=== PATIENT | male | born 1970 | race Caucasian/White ===

== ENCOUNTER 2016-08-07 08:22 | Day surgery (SDC) | payer OTHER ==
[~2016-08-07 08:22] MED LIST: TRIAMCINOLONE ACETONIDE INJ 40 MG/1 ML VIAL INJ PRN
[2016-08-07] MEDS ORDERED: SODIUM BICARBONATE 8.4% INJ 50 MEQ/50 ML DISP.SYRIN ONE (09:33)
[2016-08-07] MEDS ORDERED: FENTANYL CITRATE INJ/PF 100 MCG/2 ML AMPUL ONE (09:35)
[2016-08-07] MEDS ORDERED: MIDAZOLAM HCL INJ 5 MG/1 ML VIAL ONE (09:35)
--- NOTE | 2016-08-07 10:22 | OPERATIVE REPORT E ---
Operative Report NAME: LINETTE VALERO : 1970 AGE: 45Y DATE OF SURGERY: 08/07/2016 ROOM: PREOPERATIVE DIAGNOSIS: Lumbar radiculopathy. POSTOPERATIVE DIAGNOSIS: Lumbar radiculopathy. OPERATION: Translaminar lumbar epidural steroid injection at L5-S1 with a left paramedian approach. SURGEON: KYLAH CHRISTIANSON M.D. ANESTHESIA: MAC using 4 mg of Versed and 100 mcg of Fentanyl. COMPLICATIONS: None. PROCEDURE IN DETAIL: After obtaining informed consent and advising the patient of the risks and benefits, including serious neurological injury, bleeding and infection, allergic reaction and , he was taken to the procedure room. He was then placed comfortably in a prone position. Confirmation was assessed visually and verbally. He was then prepped with chlorhexidine with a suitable drying time prior to draping. Site was marked at the L5-S1 intersection and the patient was sterilely draped. The skin was anesthetized with 1% lidocaine with bicarb. Using an 18-gauge Tuohy needle it was easily advanced through the anesthetized area using intermittent AP and lateral fluoroscopy to confirm depth. Using [id number] technique at 8.5 cm the epidural space was found. No contrast was injected given prior allergy. Images were saved. Needle was removed after injection of 5 mL of a mixture of 3 mL normal saline and 80 mg of Kenalog after a negative aspiration for heme or CSF. The needle was then removed and the area was cleansed and a dressing was placed. The patient was taken to the PACU for further postoperative care and monitoring. He will follow up in the office as scheduled. DICTATING PHYSICIAN: KYLAH CHRISTIANSON M.D. [id number] Y#: [id number] ID: [id number] JOB#: [id number] ACCT: [id number] cc:KYLAH CHRISTIANSON M.D. >
[2016-08-07 13:39] VITALS: BP 132/86
== END 2016-08-07 11:45 | disposition home or self-care (01) ==
LOC: CCL 08:22
PROVIDERS: ATTEND Student in an Organized Health Care Education/Training Program
PROC: 3E0U33Z Introduction of Anti-inflammatory into Joints, Percutaneous Approach (ICD-10-PCS; principal; 2016-08-07)
DX: M54.17 Radiculopathy, lumbosacral region (principal); I10 Essential (primary) hypertension; M51.36 Other intervertebral disc degeneration, lumbar region; G89.4 Chronic pain syndrome; M47.814 Spondylosis without myelopathy or radiculopathy, thoracic region; Z79.899 Other long term (current) drug therapy; S06.33 Contusion and laceration of cerebrum, unspecified; Z79.891 Long term (current) use of opiate analgesic
CPT/HCPCS: 62322; 77001; J3010; J3490 ×3

== ENCOUNTER 2016-08-29 06:22 | Day surgery (SDC) | payer OTHER ==
[2016-08-29] MEDS ORDERED: OXYCODONE-ACETAMINOPHEN 5-325 MG TABLET ONE (07:07)
[2016-08-29] MEDS ORDERED: SODIUM BICARBONATE 8.4% INJ 50 MEQ/50 ML DISP.SYRIN ONE (07:24)
[2016-08-29] MEDS ORDERED: MIDAZOLAM HCL INJ 5 MG/1 ML VIAL ONE (08:02)
[2016-08-29] MEDS ORDERED: FENTANYL CITRATE INJ/PF 100 MCG/2 ML AMPUL ONE (08:03)
[2016-08-29] MEDS ORDERED: TRIAMCINOLONE ACETONIDE INJ 40 MG/1 ML VIAL INJ ONE (09:00)
--- NOTE | 2016-08-29 09:24 | OPERATIVE REPORT E ---
Operative Report NAME: LINETTE VALERO : 1970 AGE: 46Y DATE OF SURGERY: 08/29/2016 ROOM: PREOPERATIVE DIAGNOSIS: Thoracic radiculopathy. POSTOPERATIVE DIAGNOSIS: Thoracic radiculopathy. OPERATION: Thoracic epidural steroid injection, left paramedian translaminar at T7-8. SURGEON: KYLAH CHRISTIANSON M.D. ANESTHESIA: MAC using 5 mg of Versed and 100 mcg of fentanyl. COMPLICATIONS: None. PROCEDURE IN DETAIL: After obtaining informed consent, advising the patient of the risks and benefits, including serious neurologic injury, bleeding and infection, allergic reaction and , and ineffective pain relief, he was taken to the procedure room. He was placed comfortably in the prone position. Confirmation was assessed visually and verbally. He was then prepped with chlorhexidine with a suitable drying time prior to draping. Conscious sedation was then administered using 4 mg of Versed and 100 mcg of fentanyl. Using intermittent fluoroscopy, the T7-T8 interspace was marked. The patient was draped. Skin was anesthetized with 1% lidocaine with bicarb. A timeout was performed. Using a 17-gauge Tuohy needle, it was advanced through the anesthetized area using intermittent AP and lateral fluoroscopy to confirm using loss of resistance technique at the epidural space was found at 9 cm using a left paramedian approach. No contrast was injected given his allergy. Images were saved. Needle was removed after injection of 80 mg of Kenalog and 10 mL of normal saline. Note that there was a negative aspiration for heme or CSF prior to injection of the mixture. The area was cleansed, the dressing was placed, and the patient was taken to the PACU for further postoperative care and monitoring. He will follow up in our office. DICTATING PHYSICIAN: KYLAH CHRISTIANSON M.D. [id number] PHY#: [id number] ID: [id number] JOB#: [id number] ACCT: [id number] cc:KYLAH CHRISTIANSON M.D. >
[2016-08-29 10:20] VITALS: BP 154/82
== END 2016-08-29 09:45 | disposition home or self-care (01) ==
LOC: CCL 06:22
PROVIDERS: ATTEND Student in an Organized Health Care Education/Training Program
PROC: 3E0S33Z Introduction of Anti-inflammatory into Epidural Space, Percutaneous Approach (ICD-10-PCS; principal; 2016-08-29)
DX: M54.14 Radiculopathy, thoracic region (principal); M51.36 Other intervertebral disc degeneration, lumbar region; S06.33 Contusion and laceration of cerebrum, unspecified; X58.XXXS Exposure to other specified factors, sequela; G89.4 Chronic pain syndrome; M47.814 Spondylosis without myelopathy or radiculopathy, thoracic region; M47.816 Spondylosis without myelopathy or radiculopathy, lumbar region; Z79.891 Long term (current) use of opiate analgesic
CPT/HCPCS: 62320; 77001; J3010; J3490 ×3

== ENCOUNTER 2016-11-27 06:45 | Day surgery (SDC) | payer OTHER ==
[~2016-11-27 06:45] MED LIST changes: +METHYLPREDNISOLONE ACETATE INJ 80 MG/1 ML VIAL INJ PRN; +RINGERS SOLUTION,LACTATED 1,000 ML IV PRN; -TRIAMCINOLONE ACETONIDE INJ 40 MG/1 ML VIAL INJ PRN
[2016-11-27] MEDS ORDERED: METHYLPREDNISOLONE ACETATE INJ 80 MG/1 ML VIAL ONE (07:19)
[2016-11-27] MEDS ORDERED: BUPIVACAINE HCL 0.25 % INJ/PF (2.5 MG/1 ML) 30 ML VIAL ONE (07:19)
[2016-11-27] MEDS ORDERED: MIDAZOLAM HCL INJ 5 MG/1 ML VIAL ONE (07:48)
[2016-11-27] MEDS ORDERED: FENTANYL CITRATE INJ/PF 100 MCG/2 ML AMPUL ONE ×2 (07:49→08:46)
[2016-11-27] MEDS ORDERED: SODIUM BICARBONATE 8.4% INJ 50 MEQ/50 ML DISP.SYRIN ONE (08:48)
--- NOTE | 2016-11-27 09:53 | OPERATIVE REPORT E ---
Operative Report NAME: LINETTE VALERO : 1970 AGE: 46Y DATE OF SURGERY: 11/27/2016 ROOM: PREOPERATIVE DIAGNOSES: 1. Thoracic facet syndrome. 2. Spondylosis thoracic spine. POSTOPERATIVE DIAGNOSES: 1. Spondylosis thoracic spine. 2. Thoracic facet joint syndrome. PROCEDURE: Thoracic facet joint injection. ANESTHESIA: IV conscious sedation with 5 mg of Versed and 100 mcg of fentanyl. SIDE: Bilateral. SURGEON: KYLAH CHRISTIANSON M.D. REAL ESTATE REP: None. COMPLICATIONS: None. LEVELS: T3-4, 4-5, 5-6, 6-7, 7-8 bilateral. PROCEDURE IN DETAIL: After obtaining informed consent and advising the patient of the risks and benefits, including serious neurological injury, bleeding, infection, allergic reaction, , he was taken to the procedure room. He was placed comfortably in the prone position. Confirmation was assessed visually and verbally. He was then prepped with chlorhexidine with a suitable drying time prior to draping. With the use of fluoroscopic guidance, the thoracic vertebral bodies were identified, then counting up from T12 to T8. After localizing in the AP view, I did anesthetize the skin with 2 mL of 1% lidocaine. The thoracic facet joints were accessed under intermittent guidance toward the inferior aspect of the pedicle confirming in the lateral view the posterior location of the joint using a 22-gauge straight tip 3.5 inch spinal needle. [place] were advanced through the subcutaneous tissues as noted until they were at the posterior part of the joint on the levels as mentioned above. Once the needle placement was found to be optimal on AP and lateral views, a total of 10 mg/mL of Depo Medrol and 1 mL of 0.25% bupivacaine was injected periarticularly at each level. The procedure was then repeated on the same manner on the other side for a total of 100 mg of Depo Medrol and 10 mL of 0.25% bupivacaine. The patient tolerated the procedure very well. He was taken to the recovery room in stable condition where he was kept for observation and discharged home. DICTATING PHYSICIAN: KYLAH CHRISTIANSON M.D. [id number] PHY#: [id number] ID: [id number] JOB#: [id number] ACCT: [id number] cc:KYLAH CHRISTIANSON M.D. >
[2016-11-27 11:39] VITALS: BP 128/79
== END 2016-11-27 10:30 | disposition home or self-care (01) ==
LOC: CCL 06:45
PROVIDERS: ATTEND Student in an Organized Health Care Education/Training Program
PROC: 3E0R33Z Introduction of Anti-inflammatory into Spinal Canal, Percutaneous Approach (ICD-10-PCS; principal; 2016-11-27)
DX: M47.894 Other spondylosis, thoracic region (principal)
CPT/HCPCS: 64490; 64491; 64492; 77001; J3010; J1040; J3490 ×2

== ENCOUNTER 2017-03-26 11:43 | Day surgery (SDC) | payer OTHER ==
[2017-03-26] MEDS ORDERED: LIDOCAINE 2% INJ (20 MG/ML) 20 ML MDV ONE (12:13)
[2017-03-26] MEDS ORDERED: METHYLPREDNISOLONE ACETATE INJ 80 MG/1 ML VIAL ONE (12:13)
[2017-03-26] MEDS ORDERED: FENTANYL CITRATE INJ/PF 100 MCG/2 ML AMPUL ONE (12:14)
[2017-03-26] MEDS ORDERED: BUPIVACAINE HCL 0.25 % INJ/PF (2.5 MG/1 ML) 30 ML VIAL ONE (12:14)
[2017-03-26] MEDS ORDERED: MIDAZOLAM 2 MG/2 ML INJ ONE (12:16)
--- NOTE | 2017-03-26 14:03 | OPERATIVE REPORT E ---
Operative Report NAME: LINETTE VALERO : 1970 AGE: 46Y DATE OF SURGERY: 03/26/2017 ROOM: PREOPERATIVE DIAGNOSIS: Lumbar spondylosis without myelopathy. POSTOPERATIVE DIAGNOSIS: Lumbar spondylosis without myelopathy. OPERATION: Periarticular/intraarticular facet joint injection lumbar levels L3-L4, L4-L5, L5-SA bilaterally. SURGEON: KYLAH CHRISTIANSON M.D. IP LITIGATION ASSOCIATE: None. ANESTHESIA: MAC. Gave him 5 mg of Versed and 100 mcg of fentanyl. COMPLICATIONS: None. PROCEDURE IN DETAIL: After obtaining informed consent and advising the patient of the risks and benefits, including serious neurological injury, bleeding, infection, allergic reaction, and , he was taken to the operating room. He was placed comfortably in the prone position. Comfort was assessed visually and verbally. He was then prepped with chlorhexidine with a suitable drying time prior to draping. The lumbar spine was then visualized under fluoroscopy with mild rotation to 15 degrees from the AP view to better visualize the facet joint. Using a 25-gauge needle with 1% lidocaine, the areas over the target were anesthetized. A 22-gauge, 3-1/2 spinal needle was then advanced under fluoroscopic guidance directed toward the facet joint at the L3-4, L4-5, and L5-SA levels individually. After confirming AP view, a lateral was then obtained confirming proximity to the joint. Attempts to further penetrate the joint intraarticularly were made. After a small injection, the needles were slowly withdrawn and periarticular spread was given with 1 mL at each level of 0.25% Marcaine and 160 mg Depo mixture with each side. The needles were then removed sequentially and the sites were then properly dressed. Attention was taken to the left side next and done in exact same manner. The patient did well with the procedure and was taken to PACU postoperatively. He will follow up in clinic as needed. DICTATING PHYSICIAN: KYLAH CHRISTIANSON M.D. [id number] PHY#: [id number] ID: [id number] JOB#: [id number] ACCT: [id number] cc:KYLAH CHRISTIANSON M.D. >
[2017-03-26 14:34] VITALS: BP 132/86
--- NOTE | 2017-03-26 15:53 | RADIOLOGY REPORT (SQ) ---
EXAM DESCRIPTION: GUIDANCE FLUOROSCOPIC; PARAVERTEBL FACET INJ L/S 1ST COMPLETED DATE/TIME: 03/26/2017 2:37 pm REASON FOR STUDY: M51.36 M51.36 OTHER INTERVERTEBRAL DISC DEGENERATION, LUMBAR REGION COMPARISON: Previous multiple studies FLUOROSCOPY TIME: 1 minute 4 C-arm images saved to PACS. TECHNIQUE: Intra-operative images acquired during surgical procedure to evaluate progress. NUMBER OF IMAGES: Cine fluoroscopic images. LIMITATIONS: None. FINDINGS: Intra procedural imaging and fluoro during multilevel facet injection IMPRESSION: Intra procedural imaging and fluoro COMMENT: Quality ID 145: Final reports for procedures using fluoroscopy that document radiation exp osure indices, or exposure time and number of fluorographic images (if radiation exposure indices are not available) Please consult full operative report of the attending physician for description of the procedure. TECHNICAL DOCUMENTATION: JOB ID: [id number] [employer]- All Rights Reserved
== END 2017-03-26 14:15 | disposition home or self-care (01) ==
LOC: SC 11:43
PROVIDERS: ATTEND Student in an Organized Health Care Education/Training Program
PROC: 3E0U33Z Introduction of Anti-inflammatory into Joints, Percutaneous Approach (ICD-10-PCS; principal; 2017-03-26)
DX: M51.36 Other intervertebral disc degeneration, lumbar region (principal); I10 Essential (primary) hypertension; F17.210 Nicotine dependence, cigarettes, uncomplicated; G89.4 Chronic pain syndrome; M47.814 Spondylosis without myelopathy or radiculopathy, thoracic region; M47.816 Spondylosis without myelopathy or radiculopathy, lumbar region; S06.33 Contusion and laceration of cerebrum, unspecified; X58.XXXS Exposure to other specified factors, sequela; Z79.899 Other long term (current) drug therapy; Z79.891 Long term (current) use of opiate analgesic
CPT/HCPCS: 64494; 64495; 64493; 77001; J2250; J3490; J3010; J1040

== ENCOUNTER 2017-05-05 11:13 | Day surgery (SDC) | payer OTHER ==
[~2017-05-05 11:13] MED LIST changes: +FENTANYL CITRATE INJ/PF 100 MCG/2 ML AMPUL IV PRN; +MIDAZOLAM HCL INJ 5 MG/1 ML VIAL IV PRN
[2017-05-05] MEDS ORDERED: BUPIVACAINE HCL 0.25 % INJ/PF (2.5 MG/1 ML) 30 ML VIAL ONE (12:56)
[2017-05-05] MEDS ORDERED: METHYLPREDNISOLONE ACETATE INJ 80 MG/1 ML VIAL ONE (12:57)
[2017-05-05] MEDS ORDERED: MIDAZOLAM HCL INJ 5 MG/1 ML VIAL ONE (12:57)
[2017-05-05] MEDS ORDERED: FENTANYL CITRATE INJ/PF 100 MCG/2 ML AMPUL ONE (12:57)
--- NOTE | 2017-05-05 14:18 | OPERATIVE REPORT E ---
Operative Report NAME: LINETTE VALERO : 1970 AGE: 46Y DATE OF SURGERY: 05/05/2017 ROOM: PREOPERATIVE DIAGNOSES: 1. Thoracic facet syndrome. 2. Spondylosis of thoracic spine. POSTOPERATIVE DIAGNOSES: 1. Thoracic facet syndrome. 2. Spondylosis of thoracic spine. PROCEDURE: Thoracic extension with injection. ANESTHESIA: IV conscious sedation with 5 mg of Versed and 100 mcg of fentanyl. SIDE: Bilateral. SURGEON: KYLAH CHRISTIANSON M.D. DISHWASHING MACHINE OPERATOR: None. COMPLICATIONS: None. ESTIMATED BLOOD LOSS: None. LEVELS: C5-6, C6-7, C7-8 bilateral. PROCEDURE IN DETAIL: After obtaining informed consent and advising the patient of the risks and benefits, including serious neurological injury, bleeding, infection, allergic reaction, , he was taken to the procedure room. He was placed comfortably in a prone position. Cognition was assessed visually and verbally. He was then prepped with chlorhexidine with suitable drying time prior to draping. With the use of fluoroscopic guidance, thoracic vertebral bodies were identified counting up from T12 to T8. After localization in the AP view, I anesthetized the skin with 0.5 mL of 1% lidocaine. The thoracic facet joints were accessed under intermittent guidance toward the inferior aspect of the pedicle confirming in the lateral with the posterior location of the joint using a 22-gauge straight tip 3.5 inch spinal needle. [employer] were advanced through the subcutaneous tissues as noted until they were at the posterior part of the joint on the levels as mentioned above. Once the needle placement was found to be optimal AP and lateral views, a total of 10 mg/mL Depo Medrol and 1 mL of 0.25% bupivacaine was injected periarticularly at each level. The procedure was then repeated on the same manner on the left side for a total of 80 mg of Depo Medrol and 6 mL of 0.25% bupivacaine total. The patient tolerated the procedure well. He was taken to the recovery room in stable condition where he was kept for observation and discharged home. DICTATING PHYSICIAN: KYLAH CHRISTIANSON M.D. [id number] PHY#: [id number] ID: [id number] JOB#: [id number] ACCT: [id number] cc:KYLAH CHRISTIANSON M.D. >
[2017-05-05 15:02] VITALS: BP 129/98
--- NOTE | 2017-05-06 11:26 | RADIOLOGY REPORT (SQ) ---
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 FLUOROSCOPY TIME: 1.6 minutes 8 series of digital images saved to PACS. TECHNIQUE: Intra-operative images acquired during surgical procedure to evaluate progress. NUMBER OF IMAGES: 8 series of digital images acquired LIMITATIONS: None. FINDINGS: Intra procedural imaging and fluoro during thoracic pain management procedure. IMPRESSION: Intra procedural imaging and fluoro COMMENT: Quality ID 145: Final reports for procedures using fluoroscopy that document radiation exp osure indices, or exposure time and number of fluorographic images (if radiation exposure indices are not available) Please consult full operative report of the attending physician for description of the procedure. TECHNICAL DOCUMENTATION: JOB ID: [id number] [employer]- All Rights Reserved
--- NOTE | 2017-05-06 11:26 | RADIOLOGY REPORT (SQ) ---
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 FLUOROSCOPY TIME: 1.6 minutes 8 series of digital images saved to PACS. TECHNIQUE: Intra-operative images acquired during surgical procedure to evaluate progress. NUMBER OF IMAGES: 8 series of digital images acquired LIMITATIONS: None. FINDINGS: Intra procedural imaging and fluoro during thoracic pain management procedure. IMPRESSION: Intra procedural imaging and fluoro COMMENT: Quality ID 145: Final reports for procedures using fluoroscopy that document radiation exp osure indices, or exposure time and number of fluorographic images (if radiation exposure indices are not available) Please consult full operative report of the attending physician for description of the procedure. TECHNICAL DOCUMENTATION: JOB ID: [id number] [employer]- All Rights Reserved
== END 2017-05-05 15:00 | disposition home or self-care (01) ==
LOC: CCL 11:13
PROVIDERS: ATTEND Student in an Organized Health Care Education/Training Program
PROC: 3E0R33Z Introduction of Anti-inflammatory into Spinal Canal, Percutaneous Approach (ICD-10-PCS; principal; 2017-05-05)
DX: M47.814 Spondylosis without myelopathy or radiculopathy, thoracic region (principal); M53.84 Other specified dorsopathies, thoracic region; M47.816 Spondylosis without myelopathy or radiculopathy, lumbar region; I10 Essential (primary) hypertension; M51.36 Other intervertebral disc degeneration, lumbar region; F17.210 Nicotine dependence, cigarettes, uncomplicated; G89.4 Chronic pain syndrome; S06.33 Contusion and laceration of cerebrum, unspecified; X58.XXXS Exposure to other specified factors, sequela; Z79.891 Long term (current) use of opiate analgesic; Z79.899 Other long term (current) drug therapy
CPT/HCPCS: 64490; 64491; 64492; J3010; J1040; J3490

== ENCOUNTER 2017-07-25 07:16 | Day surgery (SDC) | payer OTHER ==
[2017-07-25] MEDS ORDERED: MIDAZOLAM HCL INJ 5 MG/1 ML VIAL ONE (07:54)
[2017-07-25] MEDS ORDERED: BUPIVACAINE HCL 0.25 % INJ/PF (2.5 MG/1 ML) 30 ML VIAL ONE (07:54)
[2017-07-25] MEDS ORDERED: FENTANYL CITRATE INJ/PF 100 MCG/2 ML AMPUL ONE (07:55)
[2017-07-25] MEDS ORDERED: METHYLPREDNISOLONE ACETATE INJ 40 MG/1 ML ML ONE (07:55)
[2017-07-25] MEDS ORDERED: LIDOCAINE 1% INJ-PF (10 MG/ML) 30 ML SDV ONE (08:38)
--- NOTE | 2017-07-25 09:29 | OPERATIVE REPORT E ---
Operative Report NAME: LINETTE VALERO : 1970 AGE: 46Y DATE OF SURGERY: 07/25/2017 ROOM: PREOPERATIVE DIAGNOSIS: Lumbar spondylosis without myelopathy. POSTOPERATIVE DIAGNOSIS: Lumbar spondylosis without myelopathy. OPERATION: Periarticular/intra-articular facet joint injection bilaterally at lumbar level L3-L4, L4-L5, L5-S1. SURGEON: KYLAH CHRISTIANSON M.D. CSR: None. ANESTHESIA: MAC. He was given 5 mg of Versed and 100 mcg of Fentanyl. COMPLICATIONS: None. PROCEDURE IN DETAIL: After obtaining informed consent and advising the patient of the risks and benefits, including serious neurological injury, bleeding, infection, allergic reaction and , he was taken to the operating room. He was placed comfortably in the prone position. Comfort was assessed visually and verbally. He was then prepped with Chlorhexidine with suitable drying time prior to draping. Lumbar spine was then visualized under fluoroscopy with mild rotation to 10 degrees on the AP view to better visualize the facet joint between the superior articular process. Using a 25-gauge needle with 1% lidocaine, the areas over the targets were anesthetized. A 22-gauge, 3-1/2 inch spinal needle was then advanced under fluoroscopic guidance, directed toward the facet joints at the L3-L4, L4-L5, and L5-S1 levels individually. After confirming appropriate in the AP view with a 10-degree rotation, a lateral was then obtained confirming not placed within the foramen nor further into the epidural space but was on the outside or inside of the facet joint within appropriate confirming proximity to the joint. Attempts to further penetrate the joint intra-articularly were made. After a small injection these were slowly withdrawn and periarticular spread was given with 1 mL at each side of 0.25% Marcaine and 160 mg of Depo mixture for each side. The needles were then removed sequentially and the sites were then properly dressed. Attention was taken to the left side next and done in the exact same manner. The patient did well with the procedure and was taken to the PACU postoperatively. He will follow up in the clinic as needed. DICTATING PHYSICIAN: KYLAH CHRISTIANSON M.D. [id number] PHY#: [id number] ID: [id number] JOB#: [id number] ACCT: [id number] cc:KYLAH CHRISTIANSON M.D. >
[2017-07-25 10:34] VITALS: BP 164/94
--- NOTE | 2017-07-25 11:41 | RADIOLOGY REPORT (SQ) ---
EXAM DESCRIPTION: PARAVERTEBL FACET INJ L/S 1ST COMPLETED DATE/TIME: 07/25/2017 11:29 am REASON FOR STUDY: LUMBAR SPONDYLOSIS WITHOUT MYELOPATHY OR RADICULOPATHY M47.816 SPONDYLOSIS W/O MY ELOPATHY OR RADICULOPATHY, LUMBAR COMPARISON: 05/05/2017 FLUOROSCOPY TIME: 0.5 minutes 11 series of digital images saved to PACS. TECHNIQUE: Intra-operative images acquired during surgical procedure to evaluate progress. NUMBER OF IMAGES: 11 series of digital images LIMITATIONS: None. FINDINGS: Intra procedural imaging and fluoro during pain management procedure. Please see the oper ative report for further details IMPRESSION: Intra procedural imaging and fluoro COMMENT: Quality ID 145: Final reports for procedures using fluoroscopy that document radiation exp osure indices, or exposure time and number of fluorographic images (if radiation exposure indices are not available) Please consult full operative report of the attending physician for description of the procedure. TECHNICAL DOCUMENTATION: JOB ID: [id number] [employer]- All Rights Reserved
== END 2017-07-25 10:25 | disposition home or self-care (01) ==
LOC: CCL 07:16
PROVIDERS: ATTEND Student in an Organized Health Care Education/Training Program
PROC: 3E0T3TZ Introduction of Destructive Agent into Peripheral Nerves and Plexi, Percutaneous Approach (ICD-10-PCS; principal; 2017-07-25)
DX: M47.816 Spondylosis without myelopathy or radiculopathy, lumbar region (principal); M47.814 Spondylosis without myelopathy or radiculopathy, thoracic region; G89.4 Chronic pain syndrome; I10 Essential (primary) hypertension; F17.210 Nicotine dependence, cigarettes, uncomplicated; M51.36 Other intervertebral disc degeneration, lumbar region; Z79.899 Other long term (current) drug therapy; Z79.891 Long term (current) use of opiate analgesic
CPT/HCPCS: 64494; 64495; 64493; 77001; J3010; J3490 ×2; J1020

== ENCOUNTER 2018-01-06 08:55 | Day surgery (SDC) | payer OTHER ==
[~2018-01-06 08:55] MED LIST changes: -METHYLPREDNISOLONE ACETATE INJ 80 MG/1 ML VIAL INJ PRN
[2018-01-06] MEDS ORDERED: METHYLPREDNISOLONE ACETATE INJ 80 MG/1 ML VIAL ONE (09:53)
[2018-01-06] MEDS ORDERED: MIDAZOLAM HCL INJ 5 MG/1 ML VIAL ONE (09:53)
[2018-01-06] MEDS ORDERED: FENTANYL CITRATE INJ/PF 100 MCG/2 ML AMPUL ONE (09:53)
[2018-01-06] MEDS ORDERED: BUPIVACAINE HCL 0.5 % INJ/PF 30 ML SDV ONE (09:53)
[2018-01-06] MEDS ORDERED: SODIUM BICARBONATE 8.4% INJ 50 MEQ/50 ML DISP.SYRIN ONE (09:54)
--- NOTE | 2018-01-06 11:20 | RADIOLOGY REPORT (SQ) ---
EXAM DESCRIPTION: PARAVERTEBL FACET INJ C/T 2ND; PARAVERTEBL FACET INJ C/T 3RD; PARAVERTEBL FACET IN J C/T 1ST COMPLETED DATE/TIME: 01/06/2018 10:57 am REASON FOR STUDY: M47.814 SPONDYLOSIS W/O MYELOPATHY M47.814 SPONDYLOSIS W/O MYELOPATHY OR RADICULO GABRIEL, THORACI COMPARISON: None. FLUOROSCOPY TIME: 0.6 minutes Cine fluoroscopic images saved to PACS. TECHNIQUE: Intra-operative images acquired during surgical procedure to evaluate progress. NUMBER OF IMAGES: Cine fluoroscopic images. LIMITATIONS: None. FINDINGS: Selected images from fluoroscopy of the thoracic spine. Spinal needles overlie 3 sequenti al facet joints from a posterior approach bilaterally. IMPRESSION: IMAGE(S) OBTAINED DURING PROCEDURE. COMMENT: Quality ID 145: Final reports for procedures using fluoroscopy that document radiation exp osure indices, or exposure time and number of fluorographic images (if radiation exposure indices are not available) Please consult full operative report of the attending physician for description of the procedure. TECHNICAL DOCUMENTATION: JOB ID: [id number] [employer]- All Rights Reserved Reading location - IP/workstation name: [email or web address]
--- NOTE | 2018-01-06 11:20 | OPERATIVE REPORT E ---
Operative Report NAME: LINETTE VALERO : 1970 AGE: 47Y DATE OF SURGERY: 01/06/2018 ROOM: PREOPERATIVE DIAGNOSES: 1. Thoracic facet syndrome. 2. Spondylolisthesis of thoracic spine. POSTOPERATIVE DIAGNOSES: 1. Thoracic facet syndrome. 2. Spondylolisthesis of thoracic spine. PROCEDURE: Thoracic facet injections. SURGEON: KYLAH CHRISTIANSON M.D. ANESTHESIA: IV conscious sedation with 5 mg Versed and 100 mg of fentanyl. SIDE: Bilateral. PROFILING MACHINE OPERATOR: None. COMPLICATIONS: None. ESTIMATED BLOOD LOSS: 1 mL. LEVELS: T5-T6, T6-T7, and T7-T8 bilaterally. DESCRIPTION OF PROCEDURE: After obtaining informed consent and advising the patient of the risks and benefits, including serious neurological injury, bleeding, infection, allergic reaction, and , he was taken to the procedure room. He was placed comfortably in a prone position. Cognition was assessed visually and verbally. He was then prepped with chlorhexidine with suitable drying time prior to draping. Using fluoroscopic guidance, the thoracic vertebral bodies were identified counting down from T1 to T6, T7, and T8. After vertebral bodies were identified and localization in the AP view, I anesthetized the skin with 0.5 mL of 1% lidocaine. The thoracic facet joints were accessed under intermittent guidance toward the inferior aspect of the pedicle confirming the lateral with the posterior location of the joint using a 22-gauge straight-tip 3.5 inch spinal needle. *------* were made, the needles were advanced through the subcutaneous tissues as noted until they were at the posterior part of the joint on the levels as mentioned above. Once the needle placement was found to be optimal, AP and lateral views, a total of 10 mg/mL Depo Medrol and 1 mL of 0.25% bupivacaine was injected periarticularly at each level. The procedure was then repeated on the same manner on the left side for a total of 80 mg of Depo Medrol and 6 mL of 0.25% bupivacaine. The patient tolerated the procedure well and he was taken to the recovery room in stable condition where he was kept for observation and discharged home. DICTATING PHYSICIAN: KYLAH CHRISTIANSON M.D. [id number] PHY#: [id number] ID: [id number] JOB#: [id number] ACCT: [id number] cc:KYLAH CHRISTIANSON M.D. >
--- NOTE | 2018-01-06 11:20 | RADIOLOGY REPORT (SQ) ---
EXAM DESCRIPTION: PARAVERTEBL FACET INJ C/T 2ND; PARAVERTEBL FACET INJ C/T 3RD; PARAVERTEBL FACET IN J C/T 1ST COMPLETED DATE/TIME: 01/06/2018 10:57 am REASON FOR STUDY: M47.814 SPONDYLOSIS W/O MYELOPATHY M47.814 SPONDYLOSIS W/O MYELOPATHY OR RADICULO GABRIEL, THORACI COMPARISON: None. FLUOROSCOPY TIME: 0.6 minutes Cine fluoroscopic images saved to PACS. TECHNIQUE: Intra-operative images acquired during surgical procedure to evaluate progress. NUMBER OF IMAGES: Cine fluoroscopic images. LIMITATIONS: None. FINDINGS: Selected images from fluoroscopy of the thoracic spine. Spinal needles overlie 3 sequenti al facet joints from a posterior approach bilaterally. IMPRESSION: IMAGE(S) OBTAINED DURING PROCEDURE. COMMENT: Quality ID 145: Final reports for procedures using fluoroscopy that document radiation exp osure indices, or exposure time and number of fluorographic images (if radiation exposure indices are not available) Please consult full operative report of the attending physician for description of the procedure. TECHNICAL DOCUMENTATION: JOB ID: [id number] [employer]- All Rights Reserved Reading location - IP/workstation name: [email or web address]
--- NOTE | 2018-01-06 11:20 | RADIOLOGY REPORT (SQ) ---
EXAM DESCRIPTION: PARAVERTEBL FACET INJ C/T 2ND; PARAVERTEBL FACET INJ C/T 3RD; PARAVERTEBL FACET IN J C/T 1ST COMPLETED DATE/TIME: 01/06/2018 10:57 am REASON FOR STUDY: M47.814 SPONDYLOSIS W/O MYELOPATHY M47.814 SPONDYLOSIS W/O MYELOPATHY OR RADICULO GABRIEL, THORACI COMPARISON: None. FLUOROSCOPY TIME: 0.6 minutes Cine fluoroscopic images saved to PACS. TECHNIQUE: Intra-operative images acquired during surgical procedure to evaluate progress. NUMBER OF IMAGES: Cine fluoroscopic images. LIMITATIONS: None. FINDINGS: Selected images from fluoroscopy of the thoracic spine. Spinal needles overlie 3 sequenti al facet joints from a posterior approach bilaterally. IMPRESSION: IMAGE(S) OBTAINED DURING PROCEDURE. COMMENT: Quality ID 145: Final reports for procedures using fluoroscopy that document radiation exp osure indices, or exposure time and number of fluorographic images (if radiation exposure indices are not available) Please consult full operative report of the attending physician for description of the procedure. TECHNICAL DOCUMENTATION: JOB ID: [id number] [employer]- All Rights Reserved Reading location - IP/workstation name: [email or web address]
[2018-01-06] MEDS ORDERED: OXYCODONE HCL IR 5 MG TABLET ONE (11:21)
[2018-01-06 12:40] VITALS: BP 136/81
== END 2018-01-06 12:24 | disposition home or self-care (01) ==
LOC: CCL 08:55
PROVIDERS: ATTEND Student in an Organized Health Care Education/Training Program
DX: M47.814 Spondylosis without myelopathy or radiculopathy, thoracic region (principal); M53.84 Other specified dorsopathies, thoracic region; Z87.820 Personal history of traumatic brain injury
CPT/HCPCS: 64490; 64491; 64492; 77001; J3490 ×3; J3010; J1040

== ENCOUNTER 2018-04-28 10:53 | Day surgery (SDC) | payer OTHER ==
[2018-04-28] MEDS ORDERED: METHYLPREDNISOLONE ACETATE INJ 80 MG/1 ML VIAL ONE (11:59)
[2018-04-28] MEDS ORDERED: LIDOCAINE 1% INJ-PF (10 MG/ML) 30 ML SDV ONE (11:59)
[2018-04-28] MEDS ORDERED: BUPIVACAINE HCL 0.5 % INJ/PF 30 ML SDV ONE (11:59)
[2018-04-28] MEDS ORDERED: MIDAZOLAM HCL INJ 5 MG/1 ML VIAL ONE (12:36)
[2018-04-28] MEDS ORDERED: FENTANYL CITRATE INJ/PF 100 MCG/2 ML AMPUL ONE (12:37)
--- NOTE | 2018-04-28 14:01 | OPERATIVE REPORT E ---
Operative Report NAME: LINETTE VALERO : 1970 AGE: 47Y DATE OF SURGERY: 04/28/2018 ROOM: PREOPERATIVE DIAGNOSIS: Lumbar spondylosis without myelopathy. POSTOPERATIVE DIAGNOSIS: Lumbar spondylosis without myelopathy. OPERATION: Periarticular/intra-articular facet joint injection bilaterally at lumbar level L3-L4, L4-L5, L5-S1. SURGEON: KYLAH CHRISTIANSON M.D. JOURNEYMAN CARPENTER: None. ANESTHESIA: MAC. He was given 5 mg of Versed and 50 mcg of fentanyl. COMPLICATIONS: None. PROCEDURE IN DETAIL: after obtaining informed consent and advising the patient of the risks and benefits, including serious neurological injury, bleeding, infection, allergic reaction, and , he was taken to the operating room. He was placed comfortably in the prone position. Comfort was assessed visually and verbally. He was then prepped with chlorhexidine with suitable drying time prior to draping. Lumbar spine was then visualized under fluoroscopy with mild rotation to 15 degrees on the AP view to better visualize the facet joint between the superior articular process. Using a 25-gauge needle with 1% lidocaine, the areas over the targets were anesthetized. A 22-gauge, 3-1/2 inch spinal needle was then advanced under intermittent fluoroscopic guidance, directed toward the facet joints at the L3-L4, L4-L5, and L5-S1 levels individually. After confirming appropriate view in the AP with a 10-degree rotation, a lateral was then obtained and confirmed that the spinal needle was not within the foramen nor in the epidural space. It was not in the periarticular or intra-articular surface of the facet joint. Attempts to further penetrate the joint intra-articularly were made. After a small injection, these were slowly withdrawn and periarticular spread was given with 1 mL at each side containing solutions of 4 mL of 0.25% Marcaine and 2 mL of 80 mg of Depo Medrol and lidocaine. The needles were then removed sequentially and the sites were then properly dressed. This procedure was performed in the exact same manner on the left side and done in the exact same manner. The patient did well with the procedure and was taken to the PACU postoperatively. He will follow up in the clinic as needed. DICTATING PHYSICIAN: KYLAH CHRISTIANSON M.D. [id number] PHY#: [id number] ID: [id number] JOB#: [id number] ACCT: [id number] cc:KYLAH CHRISTIANSON M.D. >
--- NOTE | 2018-04-28 14:12 | RADIOLOGY REPORT (SQ) ---
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 TECHNIQUE: Intra-operative images acquired during surgical procedure to evaluate progress. NUMBER OF IMAGES: 32 images LIMITATIONS: None. FINDINGS: Intra procedural imaging and fluoro during lumbar spine pain management procedure. Proced ure performed by Dr. Gonzalez. Please see the operative report for further details. IMPRESSION: IMAGE(S) OBTAINED DURING PROCEDURE. COMMENT: Quality ID 145: Final reports for procedures using fluoroscopy that document radiation exp osure indices, or exposure time and number of fluorographic images (if radiation exposure indices are not available) Please consult full operative report of the attending physician for description of the procedure. TECHNICAL DOCUMENTATION: JOB ID: [id number] [employer]- All Rights Reserved Reading location - IP/workstation name: [email or web address]
--- NOTE | 2018-04-28 14:12 | RADIOLOGY REPORT (SQ) ---
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 TECHNIQUE: Intra-operative images acquired during surgical procedure to evaluate progress. NUMBER OF IMAGES: 32 images LIMITATIONS: None. FINDINGS: Intra procedural imaging and fluoro during lumbar spine pain management procedure. Proced ure performed by Dr. Gonzalez. Please see the operative report for further details. IMPRESSION: IMAGE(S) OBTAINED DURING PROCEDURE. COMMENT: Quality ID 145: Final reports for procedures using fluoroscopy that document radiation exp osure indices, or exposure time and number of fluorographic images (if radiation exposure indices are not available) Please consult full operative report of the attending physician for description of the procedure. TECHNICAL DOCUMENTATION: JOB ID: [id number] [employer]- All Rights Reserved Reading location - IP/workstation name: [email or web address]
--- NOTE | 2018-04-28 14:12 | RADIOLOGY REPORT (SQ) ---
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 TECHNIQUE: Intra-operative images acquired during surgical procedure to evaluate progress. NUMBER OF IMAGES: 32 images LIMITATIONS: None. FINDINGS: Intra procedural imaging and fluoro during lumbar spine pain management procedure. Proced ure performed by Dr. Gonzalez. Please see the operative report for further details. IMPRESSION: IMAGE(S) OBTAINED DURING PROCEDURE. COMMENT: Quality ID 145: Final reports for procedures using fluoroscopy that document radiation exp osure indices, or exposure time and number of fluorographic images (if radiation exposure indices are not available) Please consult full operative report of the attending physician for description of the procedure. TECHNICAL DOCUMENTATION: JOB ID: [id number] [employer]- All Rights Reserved Reading location - IP/workstation name: [email or web address]
[2018-04-28 14:33] VITALS: BP 121/79
== END 2018-04-28 14:30 | disposition home or self-care (01) ==
LOC: CCL 10:53
PROVIDERS: ATTEND Student in an Organized Health Care Education/Training Program
DX: M51.36 Other intervertebral disc degeneration, lumbar region (principal); M47.814 Spondylosis without myelopathy or radiculopathy, thoracic region; M47.816 Spondylosis without myelopathy or radiculopathy, lumbar region; S06.33 Contusion and laceration of cerebrum, unspecified; X58.XXXS Exposure to other specified factors, sequela; I10 Essential (primary) hypertension; F17.210 Nicotine dependence, cigarettes, uncomplicated; G89.4 Chronic pain syndrome; Z79.899 Other long term (current) drug therapy; Z79.891 Long term (current) use of opiate analgesic
CPT/HCPCS: 64494; 64495; 77003; 64493; J3490 ×3; J3010; J1040

== ENCOUNTER 2018-09-11 10:01 | Day surgery (SDC) | payer OTHER ==
[2018-09-11] MEDS ORDERED: SODIUM BICARBONATE 8.4% INJ 50 MEQ/50 ML DISP.SYRIN ONE (10:22)
[2018-09-11] MEDS ORDERED: LIDOCAINE 1% INJ-PF (10 MG/ML) 30 ML SDV ONE (10:22)
[2018-09-11] MEDS ORDERED: BUPIVACAINE HCL 0.5 % INJ/PF 30 ML SDV ONE (10:22)
[2018-09-11] MEDS ORDERED: METHYLPREDNISOLONE ACETATE INJ 80 MG/1 ML VIAL ONE (10:22)
[2018-09-11] MEDS ORDERED: MIDAZOLAM HCL INJ 5 MG/1 ML VIAL ONE (10:24)
[2018-09-11] MEDS ORDERED: FENTANYL CITRATE INJ/PF 100 MCG/2 ML AMPUL ONE (10:25)
--- NOTE | 2018-09-11 12:24 | OPERATIVE REPORT E ---
Operative Report NAME: LINETTE VALERO : 1970 AGE: 48Y DATE OF SURGERY: 09/11/2018 ROOM: PREOPERATIVE DIAGNOSES: 1. Thoracic facet syndrome. 2. Spondylosis of the thoracic spine. POSTOPERATIVE DIAGNOSES: 1. Thoracic facet syndrome. 2. Spondylosis of the thoracic spine. PROCEDURE: Thoracic facet injection and coverage of periarticular layer of the medial branch nerve. SURGEON: KYLAH CHRISTIANSON M.D. PRODUCT MANAGEMENT CONSULTANT: None. ANESTHESIA: IV conscious sedation with 5 mg of Versed and 100 mcg of fentanyl started bilaterally. COMPLICATIONS: None. ESTIMATED BLOOD LOSS: 5 mL. LEVELS: T3-4, T4-5, T5-6, T6-7. DESCRIPTION OF PROCEDURE: After obtaining informed consent and advising the patient of the risks and benefits, including serious neurological injury, bleeding, infection, allergic reaction, and , he was taken to the procedure room. He was placed comfortably in the prone position. Comfort was assessed visually and verbally. He was then prepped with chlorhexidine with a suitable drying time prior to draping. We used fluoroscopic guidance. Thoracic vertebral bodies were identified coming down from T1 to T3-4, T5-6, T6-7, T7-8 *------*. I anesthetized the skin with 0.5 mL of 1% lidocaine. Thoracic facets were attempted to be accessed, including at the pedicle inferiorly using intermittent fluoroscopic guidance and AP and lateral views. [place] were advanced to the pedicle or into the joint if able. The subcutaneous tissues *------* until they were at the posterior part of the joint on the level as mentioned above. Once needle placement was found to be up on the AP and lateral views, a total of 10 mg/mL of Depo Medrol and 1 mL of 0.25% bupivacaine was injected periarticular at each level. The procedure was then repeated in the same manner on the left side for a total of 80 mg of Depo Medrol and 6 mL of 0.25% bupivacaine. The patient tolerated the procedure well. He was taken to the recovery room in stable condition where he was kept for observation and discharged home. DICTATING PHYSICIAN: KYLAH CHRISTIANSON M.D. [id number] PHY#: [id number] ID: [id number] JOB#: [id number] ACCT: [id number] cc:KYLAH CHRISTIANSON M.D. >
[2018-09-11 13:00] VITALS: BP 118/76
--- NOTE | 2018-09-11 13:59 | RADIOLOGY REPORT (SQ) ---
EXAM DESCRIPTION: PARAVERTEBL FACET INJ C/T 1ST; PARAVERTEBL FACET INJ C/T 3RD; PARAVERTEBL FACET IN J C/T 2ND; FLUORO NEEDLE PLACE/EPI/SPINE COMPLETED DATE/TIME: 09/11/2018 12:26 pm REASON FOR STUDY: M47.814 COMPARISON: None. FLUOROSCOPY TIME: 0.8 minutes 92 images saved to PACS. TECHNIQUE: Intra-operative images acquired during surgical procedure to evaluate progress. NUMBER OF IMAGES: 92 LIMITATIONS: None. FINDINGS: Images obtained during spinal needle instrumentation thoracic spine. IMPRESSION: IMAGE(S) OBTAINED DURING PROCEDURE. COMMENT: Quality ID 145: Final reports for procedures using fluoroscopy that document radiation exp osure indices, or exposure time and number of fluorographic images (if radiation exposure indices are not available) Please consult full operative report of the attending physician for description of the procedure. TECHNICAL DOCUMENTATION: JOB ID: [id number] [employer]- All Rights Reserved Reading location - IP/workstation name: [email or web address]
--- NOTE | 2018-09-11 13:59 | RADIOLOGY REPORT (SQ) ---
EXAM DESCRIPTION: PARAVERTEBL FACET INJ C/T 1ST; PARAVERTEBL FACET INJ C/T 3RD; PARAVERTEBL FACET IN J C/T 2ND; FLUORO NEEDLE PLACE/EPI/SPINE COMPLETED DATE/TIME: 09/11/2018 12:26 pm REASON FOR STUDY: M47.814 COMPARISON: None. FLUOROSCOPY TIME: 0.8 minutes 92 images saved to PACS. TECHNIQUE: Intra-operative images acquired during surgical procedure to evaluate progress. NUMBER OF IMAGES: 92 LIMITATIONS: None. FINDINGS: Images obtained during spinal needle instrumentation thoracic spine. IMPRESSION: IMAGE(S) OBTAINED DURING PROCEDURE. COMMENT: Quality ID 145: Final reports for procedures using fluoroscopy that document radiation exp osure indices, or exposure time and number of fluorographic images (if radiation exposure indices are not available) Please consult full operative report of the attending physician for description of the procedure. TECHNICAL DOCUMENTATION: JOB ID: [id number] [employer]- All Rights Reserved Reading location - IP/workstation name: [email or web address]
--- NOTE | 2018-09-11 13:59 | RADIOLOGY REPORT (SQ) ---
EXAM DESCRIPTION: PARAVERTEBL FACET INJ C/T 1ST; PARAVERTEBL FACET INJ C/T 3RD; PARAVERTEBL FACET IN J C/T 2ND; FLUORO NEEDLE PLACE/EPI/SPINE COMPLETED DATE/TIME: 09/11/2018 12:26 pm REASON FOR STUDY: M47.814 COMPARISON: None. FLUOROSCOPY TIME: 0.8 minutes 92 images saved to PACS. TECHNIQUE: Intra-operative images acquired during surgical procedure to evaluate progress. NUMBER OF IMAGES: 92 LIMITATIONS: None. FINDINGS: Images obtained during spinal needle instrumentation thoracic spine. IMPRESSION: IMAGE(S) OBTAINED DURING PROCEDURE. COMMENT: Quality ID 145: Final reports for procedures using fluoroscopy that document radiation exp osure indices, or exposure time and number of fluorographic images (if radiation exposure indices are not available) Please consult full operative report of the attending physician for description of the procedure. TECHNICAL DOCUMENTATION: JOB ID: [id number] [employer]- All Rights Reserved Reading location - IP/workstation name: [email or web address]
--- NOTE | 2018-09-11 13:59 | RADIOLOGY REPORT (SQ) ---
EXAM DESCRIPTION: PARAVERTEBL FACET INJ C/T 1ST; PARAVERTEBL FACET INJ C/T 3RD; PARAVERTEBL FACET IN J C/T 2ND; FLUORO NEEDLE PLACE/EPI/SPINE COMPLETED DATE/TIME: 09/11/2018 12:26 pm REASON FOR STUDY: M47.814 COMPARISON: None. FLUOROSCOPY TIME: 0.8 minutes 92 images saved to PACS. TECHNIQUE: Intra-operative images acquired during surgical procedure to evaluate progress. NUMBER OF IMAGES: 92 LIMITATIONS: None. FINDINGS: Images obtained during spinal needle instrumentation thoracic spine. IMPRESSION: IMAGE(S) OBTAINED DURING PROCEDURE. COMMENT: Quality ID 145: Final reports for procedures using fluoroscopy that document radiation exp osure indices, or exposure time and number of fluorographic images (if radiation exposure indices are not available) Please consult full operative report of the attending physician for description of the procedure. TECHNICAL DOCUMENTATION: JOB ID: [id number] [employer]- All Rights Reserved Reading location - IP/workstation name: [email or web address]
--- NOTE | 2018-09-11 13:59 | RADIOLOGY REPORT (SQ) ---
EXAM DESCRIPTION: PARAVERTEBL FACET INJ C/T 1ST; PARAVERTEBL FACET INJ C/T 3RD; PARAVERTEBL FACET IN J C/T 2ND; FLUORO NEEDLE PLACE/EPI/SPINE COMPLETED DATE/TIME: 09/11/2018 12:26 pm REASON FOR STUDY: M47.814 COMPARISON: None. FLUOROSCOPY TIME: 0.8 minutes 92 images saved to PACS. TECHNIQUE: Intra-operative images acquired during surgical procedure to evaluate progress. NUMBER OF IMAGES: 92 LIMITATIONS: None. FINDINGS: Images obtained during spinal needle instrumentation thoracic spine. IMPRESSION: IMAGE(S) OBTAINED DURING PROCEDURE. COMMENT: Quality ID 145: Final reports for procedures using fluoroscopy that document radiation exp osure indices, or exposure time and number of fluorographic images (if radiation exposure indices are not available) Please consult full operative report of the attending physician for description of the procedure. TECHNICAL DOCUMENTATION: JOB ID: [id number] [employer]- All Rights Reserved Reading location - IP/workstation name: [email or web address]
== END 2018-09-11 12:45 | disposition home or self-care (01) ==
LOC: CCL 10:01
PROVIDERS: ATTEND Student in an Organized Health Care Education/Training Program
DX: M47.894 Other spondylosis, thoracic region (principal); M47.814 Spondylosis without myelopathy or radiculopathy, thoracic region; I10 Essential (primary) hypertension; F17.210 Nicotine dependence, cigarettes, uncomplicated; M47.816 Spondylosis without myelopathy or radiculopathy, lumbar region; G89.4 Chronic pain syndrome; Z79.891 Long term (current) use of opiate analgesic; Z51.81 Encounter for therapeutic drug level monitoring; Z79.899 Other long term (current) drug therapy
CPT/HCPCS: 64490; 64491; 64492; 77003; J3490 ×4; J3010; J1040

== ENCOUNTER 2018-12-25 05:44 | Day surgery (SDC) | payer OTHER ==
[2018-12-25] MEDS ORDERED: FENTANYL CITRATE INJ/PF 100 MCG/2 ML AMPUL ONE (07:24)
[2018-12-25] MEDS ORDERED: SODIUM BICARBONATE 8.4% INJ 50 MEQ/50 ML DISP.SYRIN ONE (07:24)
[2018-12-25] MEDS ORDERED: MIDAZOLAM HCL INJ 5 MG/1 ML VIAL ONE (07:24)
[2018-12-25] MEDS ORDERED: BUPIVACAINE HCL 0.5 % INJ/PF 30 ML SDV ONE (07:25)
[2018-12-25] MEDS ORDERED: METHYLPREDNISOLONE ACETATE INJ 80 MG/1 ML VIAL ONE (07:54)
--- NOTE | 2018-12-25 09:45 | OPERATIVE REPORT E ---
Operative Report NAME: LINETTE VALERO : 1970 AGE: 48Y DATE OF SURGERY: 12/25/2018 ROOM: PREOPERATIVE DIAGNOSIS: Lumbar spondylosis, rule out myelopathy. POSTOPERATIVE DIAGNOSIS: Lumbar spondylosis, rule out myelopathy. OPERATION: Periarticular and intra-articular facet joint injection bilaterally at levels L3-4, L4-5, L5-S1. SURGEON: KYLAH CHRISTIANSON M.D. ROD BUSTER HELPER: None. ANESTHESIA: MAC. He was given 5 mg of Versed and 100 mcg of fentanyl. COMPLICATIONS: None. PROCEDURE IN DETAIL: After obtaining informed consent and advising the patient of the risks and benefits, including serious neurological injury, bleeding, infection, allergic reaction, and , he was taken to the operating room. He was placed comfortably in the prone position. Comfort was assessed visually and verbally. He was then prepped with chlorhexidine with suitable drying time prior to draping. Lumbar spine was then visualized under fluoroscopy with mild rotation to 10 degrees on the AP views to better visualize the facet joint between the periarticular process. Using a 25-gauge needle with 1% lidocaine, the areas over the target were anesthetized. A 22-gauge, 3-1/2-inch spinal needle was then advanced under fluoroscopic guidance and directed toward the facet joints at the L3-4, L4-5, L5-S1 levels individually. After confirming appropriate placement in the AP view with a 10- to 15-degree rotation, a lateral was then obtained confirming the spinal needle was not placed within the foramen nor into the epidural space on the periarticular surface of the joint. Attempts to further penetrate the joint intra-articularly were made with difficulty at the L3-4 level. After a small injection, these were slowly withdrawn and periarticular spread was given with 1 mm at each side containing solutions of 4 mL of 0.25% Marcaine and 2 mL of 160 mg of Depo Medrol *------*. The needles were then removed sequentially and the sites were the properly dressed. Attention was taken to the left side next and done in the exact same manner. The patient did well with the procedure and was taken to the PACU postoperatively. He will follow up in the clinic as needed. DICTATING PHYSICIAN: KYLAH CHRISTIANSON M.D. [id number] PHY#: [id number] ID: [id number] JOB#: [id number] ACCT: [id number] cc:KYLAH CHRISTIANSON M.D. >
[2018-12-25 12:55] VITALS: BP 114/59
--- NOTE | 2018-12-25 13:28 | RADIOLOGY REPORT (SQ) ---
EXAM DESCRIPTION: PARAVERTEBL FACET INJ L/S 2ND; PARAVERTEBL FACET INJ L/S 3RD; PARAVERTEBL FACET IN J L/S 1ST COMPLETED DATE/TIME: 12/25/2018 12:35 pm REASON FOR STUDY: LUMBAR PAIN M47.816 SPONDYLOSIS W/O MYELOPATHY OR RADICULOPATHY, LUMBAR COMPARISON: None. FLUOROSCOPY TIME: 0.8 minutes 92 images saved to PACS. TECHNIQUE: Intra-operative images acquired during surgical procedure to evaluate progress. NUMBER OF IMAGES: Cine fluoroscopic images. LIMITATIONS: None. FINDINGS: Selected images from thoracic and lumbar spinal instrumentation. IMPRESSION: IMAGE(S) OBTAINED DURING PROCEDURE. COMMENT: Quality ID 145: Final reports for procedures using fluoroscopy that document radiation exp osure indices, or exposure time and number of fluorographic images (if radiation exposure indices are not available) Please consult full operative report of the attending physician for description of the procedure. TECHNICAL DOCUMENTATION: JOB ID: [id number] [employer]- All Rights Reserved Reading location - IP/workstation name: [email or web address]
--- NOTE | 2018-12-25 13:28 | RADIOLOGY REPORT (SQ) ---
EXAM DESCRIPTION: PARAVERTEBL FACET INJ L/S 2ND; PARAVERTEBL FACET INJ L/S 3RD; PARAVERTEBL FACET IN J L/S 1ST COMPLETED DATE/TIME: 12/25/2018 12:35 pm REASON FOR STUDY: LUMBAR PAIN M47.816 SPONDYLOSIS W/O MYELOPATHY OR RADICULOPATHY, LUMBAR COMPARISON: None. FLUOROSCOPY TIME: 0.8 minutes 92 images saved to PACS. TECHNIQUE: Intra-operative images acquired during surgical procedure to evaluate progress. NUMBER OF IMAGES: Cine fluoroscopic images. LIMITATIONS: None. FINDINGS: Selected images from thoracic and lumbar spinal instrumentation. IMPRESSION: IMAGE(S) OBTAINED DURING PROCEDURE. COMMENT: Quality ID 145: Final reports for procedures using fluoroscopy that document radiation exp osure indices, or exposure time and number of fluorographic images (if radiation exposure indices are not available) Please consult full operative report of the attending physician for description of the procedure. TECHNICAL DOCUMENTATION: JOB ID: [id number] [employer]- All Rights Reserved Reading location - IP/workstation name: [email or web address]
--- NOTE | 2018-12-25 13:28 | RADIOLOGY REPORT (SQ) ---
EXAM DESCRIPTION: PARAVERTEBL FACET INJ L/S 2ND; PARAVERTEBL FACET INJ L/S 3RD; PARAVERTEBL FACET IN J L/S 1ST COMPLETED DATE/TIME: 12/25/2018 12:35 pm REASON FOR STUDY: LUMBAR PAIN M47.816 SPONDYLOSIS W/O MYELOPATHY OR RADICULOPATHY, LUMBAR COMPARISON: None. FLUOROSCOPY TIME: 0.8 minutes 92 images saved to PACS. TECHNIQUE: Intra-operative images acquired during surgical procedure to evaluate progress. NUMBER OF IMAGES: Cine fluoroscopic images. LIMITATIONS: None. FINDINGS: Selected images from thoracic and lumbar spinal instrumentation. IMPRESSION: IMAGE(S) OBTAINED DURING PROCEDURE. COMMENT: Quality ID 145: Final reports for procedures using fluoroscopy that document radiation exp osure indices, or exposure time and number of fluorographic images (if radiation exposure indices are not available) Please consult full operative report of the attending physician for description of the procedure. TECHNICAL DOCUMENTATION: JOB ID: [id number] [email or web address]- All Rights Reserved Reading location - IP/workstation name: [email or web address]
== END 2018-12-25 09:25 | disposition home or self-care (01) ==
LOC: CCL 05:44
PROVIDERS: ATTEND Student in an Organized Health Care Education/Training Program
DX: M47.814 Spondylosis without myelopathy or radiculopathy, thoracic region (principal); M47.816 Spondylosis without myelopathy or radiculopathy, lumbar region; M51.36 Other intervertebral disc degeneration, lumbar region; G89.4 Chronic pain syndrome; S06.33 Contusion and laceration of cerebrum, unspecified; X58.XXXS Exposure to other specified factors, sequela; I10 Essential (primary) hypertension; Z79.891 Long term (current) use of opiate analgesic; Z51.81 Encounter for therapeutic drug level monitoring; Z79.899 Other long term (current) drug therapy
CPT/HCPCS: 64494; 64495; 64493; 77001; J3490 ×2; J3010; J1040; J2250

== ENCOUNTER 2019-04-20 12:05 | Day surgery (SDC) | payer OTHER ==
[2019-04-20] MEDS ORDERED: MIDAZOLAM HCL INJ 5 MG/1 ML VIAL ONE (12:52)
[2019-04-20] MEDS ORDERED: FENTANYL CITRATE INJ/PF 100 MCG/2 ML AMPUL ONE (12:52)
[2019-04-20] MEDS ORDERED: BUPIVACAINE HCL 0.5 % INJ/PF 30 ML SDV ONE (13:03)
[2019-04-20] MEDS ORDERED: METHYLPREDNISOLONE ACETATE INJ 80 MG/1 ML VIAL ONE (13:03)
--- NOTE | 2019-04-20 13:44 | Operative Report ---
Preoperative Diagnosis: Thoracic facet syndrome, Thoracic Spondylosis Postoperative Diagnosis: same Procedure: thoracic periarticular facet injections bilaterally Surgeon: Dr. Sang Gonzalez Stitcher Set Up Operator Automatic: none Anesthesia: IV conscious sedation with 5mg of Versed and 100mcg of fentanyl Complications: none EBL: minimal Levels: T4-5, T5-6, T6-7 Description of Procedure: After obtaining informed consent and advising the patient of the risks and benefits, including serious neurological injury, bleeding, infection, allergic reaction, and , he was taken to the procedure room. He was placed comfortably in the prone position. Comfort was assessed visually and verbally. He was then prepped with chlorhexidine with a suitable drying time prior to draping. Using fluoroscopic guidance, the thoracic vertebral bodies were identified counting down from T1 to T4-5, T5-6, T6-7 bilaterally. I anesthetized the skin with 0.5ml of 1% lidocaine. Thoracic facets were attempted to be access via 22 gauge spinal needles through the anesthetized track aiming at the T4, T5, T6, T7 pedicle. The needle was advanced toward the facet joint using intermittent fluoroscopic guidance in the AP and lateral view. [place] remained periarticular to the joint approaching the pedicle. The needle was advanced until they were at the posterior part of the joint on the level as mentioned above. Once needle placement was found to be satisfactory on the AP and the lateral views, a total of 10mg/ml of Depomedrol and 1 ml of 0.25% bupivcacine was in injected periarticularlly. The procedure was repeated in the same manner on the left. The patient tolerated the procedure well. He was taken to the recovery room in stable condition where he was kept for observation and discharged home.
[2019-04-20 14:45] VITALS: BP 154/86
--- NOTE | 2019-04-20 17:38 | RADIOLOGY REPORT (SQ) ---
EXAM DESCRIPTION: PARAVERTEBL FACET INJ C/T 2ND; PARAVERTEBL FACET INJ C/T 1ST; PARAVERTEBL FACET IN J C/T 3RD COMPLETED DATE/TIME: 04/20/2019 1:53 pm; 04/20/2019 1:55 pm REASON FOR STUDY: M47.814 COMPARISON: None. FLUOROSCOPY TIME: See procedure note 15 digital fluoroscopic Images saved to PACS LIMITATIONS: None. PROCEDURE: Pain management procedure performed in the mill laborer using fluoro and digital radiographs. Please see the operative urgent report for further information FINDINGS: Pain management procedure performed in the mill laborer using fluoro and digital radiographs. Please see the operative urgent report for further information IMPRESSION: Intraoperative imaging and fluoro COMMENT: PQRS 6045F: Fluoroscopy time of the procedure is documented in the report. TECHNICAL DOCUMENTATION: JOB ID: [id number] [employer]- All Rights Reserved Reading location - IP/workstation name: [email or web address]
--- NOTE | 2019-04-20 17:38 | RADIOLOGY REPORT (SQ) ---
EXAM DESCRIPTION: PARAVERTEBL FACET INJ C/T 2ND; PARAVERTEBL FACET INJ C/T 1ST; PARAVERTEBL FACET IN J C/T 3RD COMPLETED DATE/TIME: 04/20/2019 1:53 pm; 04/20/2019 1:55 pm REASON FOR STUDY: M47.814 COMPARISON: None. FLUOROSCOPY TIME: See procedure note 15 digital fluoroscopic Images saved to PACS LIMITATIONS: None. PROCEDURE: Pain management procedure performed in the labor custodian using fluoro and digital radiographs. Please see the operative urgent report for further information FINDINGS: Pain management procedure performed in the labor custodian using fluoro and digital radiographs. Please see the operative urgent report for further information IMPRESSION: Intraoperative imaging and fluoro COMMENT: PQRS 6045F: Fluoroscopy time of the procedure is documented in the report. TECHNICAL DOCUMENTATION: JOB ID: [id number] [employer]- All Rights Reserved Reading location - IP/workstation name: [email or web address]
--- NOTE | 2019-04-20 17:38 | RADIOLOGY REPORT (SQ) ---
EXAM DESCRIPTION: PARAVERTEBL FACET INJ C/T 2ND; PARAVERTEBL FACET INJ C/T 1ST; PARAVERTEBL FACET IN J C/T 3RD COMPLETED DATE/TIME: 04/20/2019 1:53 pm; 04/20/2019 1:55 pm REASON FOR STUDY: M47.814 COMPARISON: None. FLUOROSCOPY TIME: See procedure note 15 digital fluoroscopic Images saved to PACS LIMITATIONS: None. PROCEDURE: Pain management procedure performed in the labor economics teacher using fluoro and digital radiographs. Please see the operative urgent report for further information FINDINGS: Pain management procedure performed in the labor economics teacher using fluoro and digital radiographs. Please see the operative urgent report for further information IMPRESSION: Intraoperative imaging and fluoro COMMENT: PQRS 6045F: Fluoroscopy time of the procedure is documented in the report. TECHNICAL DOCUMENTATION: JOB ID: [id number] [employer]- All Rights Reserved Reading location - IP/workstation name: [email or web address]
--- NOTE | 2019-04-20 17:39 | RADIOLOGY REPORT (SQ) ---
EXAM DESCRIPTION: PARAVERTEBL FACET INJ C/T 2ND; PARAVERTEBL FACET INJ C/T 1ST; PARAVERTEBL FACET IN J C/T 3RD COMPLETED DATE/TIME: 04/20/2019 1:53 pm; 04/20/2019 1:55 pm REASON FOR STUDY: M47.814 COMPARISON: None. FLUOROSCOPY TIME: See procedure note 15 digital fluoroscopic Images saved to PACS LIMITATIONS: None. PROCEDURE: Pain management procedure performed in the seed laboratory assistant using fluoro and digital radiographs. Please see the operative urgent report for further information FINDINGS: Pain management procedure performed in the seed laboratory assistant using fluoro and digital radiographs. Please see the operative urgent report for further information IMPRESSION: Intraoperative imaging and fluoro COMMENT: PQRS 6045F: Fluoroscopy time of the procedure is documented in the report. TECHNICAL DOCUMENTATION: JOB ID: [id number] [employer]- All Rights Reserved Reading location - IP/workstation name: [email or web address]
== END 2019-04-20 14:30 | disposition home or self-care (01) ==
LOC: CCL 12:05
PROVIDERS: ATTEND Student in an Organized Health Care Education/Training Program
DX: M47.814 Spondylosis without myelopathy or radiculopathy, thoracic region (principal); I10 Essential (primary) hypertension; F17.210 Nicotine dependence, cigarettes, uncomplicated; M51.36 Other intervertebral disc degeneration, lumbar region; G89.4 Chronic pain syndrome; M47.816 Spondylosis without myelopathy or radiculopathy, lumbar region; S06.33 Contusion and laceration of cerebrum, unspecified; Z79.891 Long term (current) use of opiate analgesic; Z51.81 Encounter for therapeutic drug level monitoring; Z79.899 Other long term (current) drug therapy
CPT/HCPCS: 64490; 64491; 64492; 77003; J3490; J3010; J1040; J2250

== ENCOUNTER 2020-03-24 10:17 | Day surgery (SDC) | payer OTHER ==
[2020-03-24] MEDS ORDERED: FENTANYL CITRATE INJ/PF 250 MCG/5 ML AMPULE ONE (11:07)
[2020-03-24] MEDS ORDERED: MIDAZOLAM HCL INJ 5 MG/1 ML VIAL ONE (11:07)
[2020-03-24] MEDS ORDERED: METHYLPREDNISOLONE ACETATE INJ 80 MG/1 ML VIAL ONE (11:07)
[2020-03-24] MEDS ORDERED: LIDOCAINE 1% INJ-PF (10 MG/ML) 30 ML SDV ONE (11:08)
[2020-03-24] MEDS ORDERED: BUPIVACAINE HCL 0.5 % INJ/PF 30 ML SDV ONE (11:08)
--- NOTE | 2020-03-24 12:20 | Operative Report ---
PREOPERATIVE DIAGNOSIS: Thoracic Spondylosis POSTOPERATIVE DIAGNOSIS:Thoracic Spondylosis PROCEDURE: 1. T3-4 IA facet injection bilateral 2. T4-5 IA facet injection bilateral 3. T5-6 IA facet injection bilateral 4. T6-7 IA facet injection bilateral DATE OF PROCEDURE: [03/24/2020] ANESTHESIA: [IV sedation: fentanyl 150mcg, midazolam 5mg] COMPLICATIONS: [none] CONSENT: A full description of the procedure was provided including benefits as well as possible complications. All questions were answered and informed consent was given and signed. ASA guidelines for fasting were verified prior to sedation. PROCEDURE IN DETAIL The patient was brought into the procedure room and placed on the exam table in a comfortable prone position. The thoracic region was widely prepped with a chloraprep solution, allowed to air dry and draped in standard sterile surgical fashion. Local anesthesia was provided by [1] mL of [1]%[lidocaine] delivered with a 25g needle. Using fluoroscopic guidance, the thoracic levels were identified counting down from T1 to levels T3-4, T4-5, T5-6, T6-7. Starting on the right side, local anesthesia was provided by [1] mL of [1]%[lidocaine] delivered with a 25g needle at each level. Using intermittent fluoroscopy, a 22g 5" spinal needle was perpendicularly placed directed at the thoracic facet junction at each level. The needle was advanced toward the thoracic facet using intermittent fluoroscopic guidance in the AP and lateral view. Neeldes were advanced near the joint (periarticular) or into the joint (intraarticular) as able. The needles were advanced until they were at the posterior part of the joint on the levels noted above. Once needle placement was found to be satisfactory on the AP and lateral views, a total of 10mg/ml of depomedrol an1 ml of 0.25% buipviacaine was injected periarticular at each level. The procedure was then repeated in the same manner on the left side for a total of 80mg of Depomedrol and 6ml of 0.25% bupivacaine. The patient tolerated the procedure well. He was taken to the recovery room in stable condition where he was kept for observation and discharged home. POST PROCEDURE EVALUATION: The patient tolerated the procedure well. After observation the patient was discharged with instructions and follow up. The patient was also provided contact information to call regarding any concerning symptoms or questions. IMPRESSION: 1. Successful thoracic periarticular facet injection bilateral T3-4,T4-5, T5-6, T6-7. 2. RTC in [6] week(s). 3. Estimated Blood Loss: [3cc] 4. Fluoroscopy time: [see nursing record] seconds
[2020-03-24 13:21] VITALS: BP 127/85
--- NOTE | 2020-03-24 13:36 | RADIOLOGY REPORT (SQ) ---
EXAM DESCRIPTION: PARAVERTEBL FACET INJ C/T 3RD; PARAVERTEBL FACET INJ C/T 2ND; PARAVERTEBL FACET IN J C/T 1ST IMAGES COMPLETED DATE/TIME: 03/24/2020 12:32 pm; 03/24/2020 12:39 pm; 03/24/2020 12:31 pm REASON FOR STUDY: THORACIC FACET SYNDROME. T5/T6, T6/T7, T7/T8; THORACIC FACET SYNDROME T3/4, T4/5, T5/6, T6/7; THORACIC FACET SYNDROME. T3/4, 4/5, 5/T6, T6/T7 COMPARISON: None. FLUOROSCOPY TIME: 0.7 minutes of total fluoro time 4 digital fluoroscopic images saved to PACS. TECHNIQUE: Intra-operative images acquired during surgical procedure to evaluate progress. NUMBER OF IMAGES: Cine fluoroscopic images. LIMITATIONS: None. FINDINGS: Intra procedural imaging and fluoroscopy during thoracic pain management procedure IMPRESSION: IMAGE(S) OBTAINED DURING PROCEDURE. COMMENT: Quality ID 145: Final reports for procedures using fluoroscopy that document radiation exp osure indices, or exposure time and number of fluorographic images (if radiation exposure indices are not available) Please consult full operative report of the attending physician for description of the procedure. TECHNICAL DOCUMENTATION: JOB ID: [id number] 2010 [employer]- All Rights Reserved Reading location - IP/workstation name: [email or web address]
--- NOTE | 2020-03-24 13:36 | RADIOLOGY REPORT (SQ) ---
EXAM DESCRIPTION: PARAVERTEBL FACET INJ C/T 3RD; PARAVERTEBL FACET INJ C/T 2ND; PARAVERTEBL FACET IN J C/T 1ST IMAGES COMPLETED DATE/TIME: 03/24/2020 12:32 pm; 03/24/2020 12:39 pm; 03/24/2020 12:31 pm REASON FOR STUDY: THORACIC FACET SYNDROME. T5/T6, T6/T7, T7/T8; THORACIC FACET SYNDROME T3/4, T4/5, T5/6, T6/7; THORACIC FACET SYNDROME. T3/4, 4/5, 5/T6, T6/T7 COMPARISON: None. FLUOROSCOPY TIME: 0.7 minutes of total fluoro time 4 digital fluoroscopic images saved to PACS. TECHNIQUE: Intra-operative images acquired during surgical procedure to evaluate progress. NUMBER OF IMAGES: Cine fluoroscopic images. LIMITATIONS: None. FINDINGS: Intra procedural imaging and fluoroscopy during thoracic pain management procedure IMPRESSION: IMAGE(S) OBTAINED DURING PROCEDURE. COMMENT: Quality ID 145: Final reports for procedures using fluoroscopy that document radiation exp osure indices, or exposure time and number of fluorographic images (if radiation exposure indices are not available) Please consult full operative report of the attending physician for description of the procedure. TECHNICAL DOCUMENTATION: JOB ID: [id number] 2010 [employer]- All Rights Reserved Reading location - IP/workstation name: [email or web address]
--- NOTE | 2020-03-24 13:36 | RADIOLOGY REPORT (SQ) ---
EXAM DESCRIPTION: PARAVERTEBL FACET INJ C/T 3RD; PARAVERTEBL FACET INJ C/T 2ND; PARAVERTEBL FACET IN J C/T 1ST IMAGES COMPLETED DATE/TIME: 03/24/2020 12:32 pm; 03/24/2020 12:39 pm; 03/24/2020 12:31 pm REASON FOR STUDY: THORACIC FACET SYNDROME. T5/T6, T6/T7, T7/T8; THORACIC FACET SYNDROME T3/4, T4/5, T5/6, T6/7; THORACIC FACET SYNDROME. T3/4, 4/5, 5/T6, T6/T7 COMPARISON: None. FLUOROSCOPY TIME: 0.7 minutes of total fluoro time 4 digital fluoroscopic images saved to PACS. TECHNIQUE: Intra-operative images acquired during surgical procedure to evaluate progress. NUMBER OF IMAGES: Cine fluoroscopic images. LIMITATIONS: None. FINDINGS: Intra procedural imaging and fluoroscopy during thoracic pain management procedure IMPRESSION: IMAGE(S) OBTAINED DURING PROCEDURE. COMMENT: Quality ID 145: Final reports for procedures using fluoroscopy that document radiation exp osure indices, or exposure time and number of fluorographic images (if radiation exposure indices are not available) Please consult full operative report of the attending physician for description of the procedure. TECHNICAL DOCUMENTATION: JOB ID: [id number] 2010 [employer]- All Rights Reserved Reading location - IP/workstation name: [email or web address]
--- NOTE | 2020-03-24 13:36 | RADIOLOGY REPORT (SQ) ---
EXAM DESCRIPTION: PARAVERTEBL FACET INJ C/T 3RD; PARAVERTEBL FACET INJ C/T 2ND; PARAVERTEBL FACET IN J C/T 1ST IMAGES COMPLETED DATE/TIME: 03/24/2020 12:32 pm; 03/24/2020 12:39 pm; 03/24/2020 12:31 pm REASON FOR STUDY: THORACIC FACET SYNDROME. T5/T6, T6/T7, T7/T8; THORACIC FACET SYNDROME T3/4, T4/5, T5/6, T6/7; THORACIC FACET SYNDROME. T3/4, 4/5, 5/T6, T6/T7 COMPARISON: None. FLUOROSCOPY TIME: 0.7 minutes of total fluoro time 4 digital fluoroscopic images saved to PACS. TECHNIQUE: Intra-operative images acquired during surgical procedure to evaluate progress. NUMBER OF IMAGES: Cine fluoroscopic images. LIMITATIONS: None. FINDINGS: Intra procedural imaging and fluoroscopy during thoracic pain management procedure IMPRESSION: IMAGE(S) OBTAINED DURING PROCEDURE. COMMENT: Quality ID 145: Final reports for procedures using fluoroscopy that document radiation exp osure indices, or exposure time and number of fluorographic images (if radiation exposure indices are not available) Please consult full operative report of the attending physician for description of the procedure. TECHNICAL DOCUMENTATION: JOB ID: [id number] 2010 [employer]- All Rights Reserved Reading location - IP/workstation name: [email or web address]
== END 2020-03-24 13:15 | disposition home or self-care (01) ==
LOC: CCL 10:17
PROVIDERS: ATTEND Student in an Organized Health Care Education/Training Program
DX: M47.814 Spondylosis without myelopathy or radiculopathy, thoracic region (principal); M47.816 Spondylosis without myelopathy or radiculopathy, lumbar region; M51.36 Other intervertebral disc degeneration, lumbar region; G89.4 Chronic pain syndrome; I10 Essential (primary) hypertension; S06.33 Contusion and laceration of cerebrum, unspecified; X58.XXXS Exposure to other specified factors, sequela; Z79.891 Long term (current) use of opiate analgesic; Z51.81 Encounter for therapeutic drug level monitoring; Z79.899 Other long term (current) drug therapy
CPT/HCPCS: 64490; 64491; 64492; J3490 ×2; J3010; J1040; J2250